=== PATIENT | female | born 1980 | race Two or more races ===

== ENCOUNTER 2017-05-02 10:21 | Emergency (ER) | payer OTHER ==
[2017-05-02] MEDS ORDERED: PROPARACAINE 0.5% 15 ML OPHT DROP ONE (10:33)
[2017-05-02] MEDS ORDERED: FLUORESCEIN SODIUM 1 MG STRIP OP ONE ×2 (10:33→10:38)
[2017-05-02] MEDS ORDERED: PROPARACAINE 0.5% 15 ML OPHT DROP LEFTEYE ONE (10:38)
--- NOTE | 2017-05-02 10:42 | EDPHY ---
H & P Stated Complaint: pt got soap in l eye/flushed with water but still hurts HPI/ROS: CHIEF COMPLAINT: Eye pain, chemical exposure HISTORY OF PRESENT ILLNESS: Patient was washing her face this morning with Desert Essence facial cleanser. When she accidentally scored some of the med ointment into her eye. Caused a sudden onset of pain and redness of the eye. It has been tearing ever since. No changes in vision other than being difficult to open her eye. She has some discomfort in the area. No headache. No injury elsewhere. Tetanus is up-to-date. No modifying factors. No associated complaints. REVIEW OF SYSTEMS: Ten systems reviewed and are negative unless otherwise noted in the HPI PAST MEDICAL HISTORY: Denies SOCIAL HISTORY: Nonsmoker. Does not wear contacts. FAMILY HISTORY: Noncontributory EXAMINATION General Appearance: Alert, no distress Head: normocephalic, atraumatic Eyes: Pupils equal and round. There is conjunctival injection on the left eye. No hyphema. No foreign body present on stain examination. There is a small corneal abrasion as noted below. Eyelids everted. Cardiovascular: Regular rate. Excellent signs of perfusion Neurological: A&O, nonfocal Skin: Warm and dry, no rash. No periorbital or orbital erythema or edema. DIFFERENTIAL DIAGNOSES: Including but not limited to chemical exposure to the eye, conjunctivitis, acute iritis, traumatic iritis, corneal abrasion, chemical burn MDM: 10:40 a.m. Exposure to acne cream (Desert Essence) in the left eye 30 minutes prior to arrival. She at first would not open her eye. Now that she has had proparacaine , she has opened it better. Will continue with irrigation and then re- evaluation. 11:30 a.m. Patient still has discomfort but feels much better than time of arrival. The proparacaine is improving her symptoms. Fluorescein staining of the eye reveals a very small corneal abrasion to the lateral/temporal field at approximately 3 o 'clock. This is not over the field of view. No dendritic or branching lesions. No hyphema. PH is 8 in the affected eye. There is some conjunctivitis. The eye has been copiously irrigated. I will treat her with topical antibiotic ointment and referred to Ophthalmology for definitive care. At this time she has no vision change in her visual menendez are intact. Her tetanus is up-to-date. She will be instructed to contact Ophthalmology and return here for any worsening symptoms. I discussed this case with Dr. Leiva is comfortable with this plan. SUPERVISION: This patient was independently evaluated without direct examination by the attending physician. Case was discussed with attending physician. Source: Patient Exam Limitations: No limitations - Personal History LMP (Females 10-55): 15-21 Days Ago Current Tetanus/Diphtheria Vaccine: No - Medical/Surgical History Hx Asthma: No Hx Chronic Respiratory Disease: No Hx Diabetes: No Hx Cardiac Disease: No Hx Renal Disease: Yes Hx Cirrhosis: No Hx Alcoholism: No Hx HIV/AIDS: No Hx Splenectomy or Spleen Trauma: No Other PMH: HOSPITALIZED FOR 3 WEEKS DUE TO KIDNEY PROBLEMS DECEMBER 2009. C- SECTIONS X3 - Social History Smoking Status: Never smoked Constitutional: Initial Vital Signs Temperature (C) 97.9 F 05/02/17 10:25 Heart Rate 90 05/02/17 10:25 Respiratory Rate 18 05/02/17 10:25 Blood Pressure 98/60 L 05/02/17 10:25 O2 Sat (%) 100 05/02/17 10:25 O2 Delivery Mode Room Air Allergies/Adverse Reactions: Penicillins Allergy (Intermediate, Verified 06/18/14 13:15) Hives Home Medications: Medication Instructions Recorded Erythromycin 0.5% 1 tulio OP TID #1 opht.oint 05/02/17 Hydrocodone/APAP 5/325 [Rusk 1 - 2 tab PO Q4H PRN #10 tab 05/02/17 5/325 (*)] Medical Decision Making - Data Points Medications Given: Discontinued Medications Fluorescein Sodium ([id number]) 1 mg OP EDNOW ONE Stop: 05/02/17 10:39 Last Admin: 05/02/17 10:50 Dose: 1 mg Proparacaine HCl (Alcaine 0.5%) 1 drops LEFTEYE ONCE ONE Stop: 05/02/17 10:39 Last Admin: 05/02/17 10:50 Dose: 1 drop Departure - Departure Disposition: Home, Routine, Self-Care Clinical Impression: Chemical exposure of eye Corneal abrasion Qualifiers: Encounter type: initial encounter Laterality: left Qualified Code(s): S05.02XA - Injury of conjunctiva and corneal abrasion without foreign body, left eye, initial encounter Condition: Good Instructions: Chemical Eye Lopez (ED), Corneal Abrasion (ED) Additional Instructions: 1. Ophthalmic eye ointment as discussed 2. Contact Ophthalmology for definitive care 3. Return here immediately for any worsening pain, difficulty with vision, or headache Referrals: CONNIE HORAN [Other] - As per Instructions Micah Kingston MD [Medical Doctor] - As per Instructions Prescriptions: Erythromycin 0.5% 1 tulio OP TID #1 opht.oint Hydrocodone/APAP 5/325 [Rusk 5/325 (*)] 1 - 2 tab PO Q4H PRN #10 tab PRN Reason: Pain, Moderate
[2017-05-02 11:44] VITALS: BP 120/74; PULSE 80; RESP 14; TEMP 98.4; O2SAT 94
== END 2017-05-02 11:43 | disposition home or self-care (01) ==
DX: S05.02XA Injury of conjunctiva and corneal abrasion without foreign body, left eye, initial encounter (principal); Z77.098 Contact with and (suspected) exposure to other hazardous, chiefly nonmedicinal, chemicals; X58.XXXA Exposure to other specified factors, initial encounter

== ENCOUNTER 2019-03-15 21:20 | Emergency (ER) | payer SELFPAY ==
[2019-03-15 21:25] VITALS: BP 116/68
--- NOTE | 2019-03-15 21:26 | EDPHY ---
H & P Stated Complaint: L back pain, L leg pain, worse since saturday Time Seen by Provider: 03/15/19 21:25 - Personal History LMP (Females 10-55): 8-14 Days Ago Current Tetanus Diphtheria and Acellular Pertussis (TDAP): Unsure - Medical/Surgical History Hx Asthma: No Hx Chronic Respiratory Disease: No Hx Diabetes: No Hx Cardiac Disease: No Hx Renal Disease: Yes Hx Cirrhosis: No Hx Alcoholism: No Hx HIV/AIDS: No Hx Splenectomy or Spleen Trauma: No Other PMH: HOSPITALIZED FOR 3 WEEKS DUE TO KIDNEY PROBLEMS DECEMBER 2009. C- SECTIONS X3 - Social History Smoking Status: Never smoked Constitutional: Initial Vital Signs Temperature (C) 36.7 C 03/15/19 21:20 Heart Rate 78 03/15/19 21:20 Respiratory Rate 18 03/15/19 21:20 Blood Pressure 116/68 03/15/19 21:20 O2 Sat (%) 96 03/15/19 21:20 O2 Delivery Mode Room Air Allergies/Adverse Reactions: Penicillins Allergy (Intermediate, Verified 03/15/19 21:23) Hives Home Medications: Medication Instructions Recorded Erythromycin 0.5% 1 tulio OP TID #1 opht.oint 05/02/17 Hydrocodone/APAP 5/325 [Mobile 1 - 2 tab PO Q4H PRN #10 tab 05/02/17 5/325 (*)] Ibuprofen [Motrin] 800 mg PO Q8 #20 tab 03/15/19 methylPREDNISolone [Medrol Dose 1 each PO AD #1 ea 03/15/19 Sreekanth] oxyCODONE IR [Oxycodone Ir (*)] 5 - 10 mg PO Q6 PRN #20 tab 03/15/19 Medical Decision Making - Diagnostics Imaging: I viewed and interpreted images myself ED Course/Re-evaluation: CHIEF COMPLAINT: Left back pain HISTORY OF PRESENT ILLNESS: The patient is a 38 y/o female complaining of worsening left back pain radiating into her leg onset Saturday, 2 days ago. The pain radiates down to her left lower thigh. She took ibuprofen and Tylenol without relief of her symptoms. When she lies flat in bed the pain is mildly alleviated. No fever, headache, body aches, lightheadedness, chest pain, heart palpitations, shortness of breath, cough, abdominal pain, urinary or bowel complaints, numbness, paresthesias. REVIEW OF SYSTEMS: A comprehensive 10 system review of systems is otherwise negative aside from elements mentioned in the history of present illness and medical decision making. PHYSICAL EXAM: HR, BP, O2 Sat, RR. Temp noted General Appearance: Alert, well hydrated, appropriate, and non-toxic appearing. Head: Atraumatic without scalp tenderness or obvious injury Eyes: Pupils equal, round, reactive to light and accommodation, EOMI, no trauma , no injection. Ears: Clear bilaterally, no perforation, normal landmarks Nose: Atraumatic, no rhinorrhea, clear. Throat: There is no erythema or exudates, no lesions, normal tonsils, mucus membranes moist. Neck: Supple, 2+ carotid upstroke, nontender, no lymphadenopathy. Respiratory: No retractions, no distress, no wheezes, and no accessory muscle use. Lungs are clear to auscultation bilaterally. Cardiovascular: Regular rate and rhythm, no murmurs, rubs, or gallops. Bilateral carotid, radial, dorsalis pedis, and posterior tibial pulses intact. Good capillary refill all extremities. Gastrointestinal: Abdomen is soft, nontender, non-distended, no masses, no rebound, no guarding, no peritoneal signs. Musculoskeletal: Normal active ROM of all extremities, atraumatic. Back: No fevers, chills, epidural abscess or hematoma. Normal reflexes, no signs of cauda equina. Neurological: Alert, appropriate, and interactive. The patient has normal DTRs and non-focal cranial nerves, motor, sensory, and cerebellar exam. Skin: No rashes, good turgor, no nodules on palpation. Past medical history: Kidney problems Past surgical history: Family history: Denies Social history: DIAGNOSTICS/PROCEDURES/CRITICAL CARE TIME: L-spine x-ray: No acute findings. DIFFERENTIAL DIAGNOSIS: The differential diagnosis for the patient's back pain included but was not limited to musculoskeletal pain, epidural abscess, herniated disk, spinal fracture, and intra-abdominal causes including urinary system. MEDICAL DECISION MAKING: The patient is a 38 y/o female presenting with worsening left back pain radiating into her leg onset Saturday, 2 days ago. The pain radiates down to her left lower thigh. There are no other exam findings besides her subjective pain with radiation. No fevers, chills, epidural abscess or hematoma. Normal reflexes , no signs of cauda equina. No recent spinal instrumentation. L-spine x-ray ordered; 2 tabs Percocet and 6mg PO Decadron administered. 2211: Reassessed patient and discussed normal imaging findings. I have prescribed her Motrin, OxyIR, and a Medrol Dose Pack. I have also advised her to follow up with a neurosurgeon. Return precautions provided; patient is comfortable with this plan. - Data Points Medications Given: Discontinued Medications Dexamethasone (Decadron Injection) 6 mg PO EDNOW ONE Stop: 03/15/19 21:32 Last Admin: 03/15/19 21:37 Dose: 6 mg Oxycodone/Acetaminophen (Percocet 5/325) 2 tab PO EDNOW ONE Stop: 03/15/19 21:32 Last Admin: 03/15/19 21:37 Dose: 2 tab Departure - Departure Disposition: Home, Routine, Self-Care Clinical Impression: Back pain with radiculopathy Condition: Good Instructions: Low Back Strain (ED), Lumbar Radiculopathy (ED), Back Pain (ED), Lower Back Exercises (ED) Additional Instructions: 1. Take Motrin and OxyIR as prescribed. 2. Take the Medrol Dose Sreekanth as prescribed. 3. Followup with a e marketing specialist within one week. 4. Return to the emergency department for severe pain, fever, numbness, difficulty walking, change in location or nature of pain or other concerns. Referrals: Eric Clancy MD [Medical Doctor] - As per Instructions Prescriptions: Ibuprofen [Motrin] 800 mg PO Q8 #20 tab methylPREDNISolone [Medrol Dose Sreekanth] 1 each PO AD #1 ea oxyCODONE IR [Oxycodone Ir (*)] 5 - 10 mg PO Q6 PRN #20 tab PRN Reason: Pain, Severe Report Scribed for: Geovanni Muir Report Scribed by: Sarah Salas Date of Report: 03/15/19 Time of Report: 22:12
[2019-03-15] MEDS ORDERED: OXYCODONE/APAP 5/325 TAB PO ONE (21:31)
[2019-03-15] MEDS ORDERED: DEXAMETHASONE 10 MG/ML VIAL PO ONE (21:31)
== END 2019-03-15 22:15 | disposition home or self-care (01) ==
DX: M54.16 Radiculopathy, lumbar region (principal)
CPT/HCPCS: J1100